=== PATIENT | female | born 1940 | race Caucasian/White ===

== ENCOUNTER 2019-06-28 11:39 | Inpatient (IN) ==
[2019-06-28] MEDS ORDERED: TYLENOL PO PRN (12:55)
[2019-06-28] MEDS ORDERED: LOVENOX 1 MG/KG SUBQ SCH (12:55)
[2019-06-28] MEDS ORDERED: ZOFRAN IV PRN (12:55)
--- NOTE | 2019-06-28 14:04 | HISTORY AND PHYSICAL ---
PRIMARY CARE PHYSICIAN: Dr. Briana Tabares. CHIEF COMPLAINT: Shortness of breath and cough over the past couple of weeks that progressively worsened. She was sent for an outpatient CT of the chest yesterday, and today was found to have a right upper lobe and right lower lobe pulmonary emboli, and a right middle lobe pneumonia. She is being admitted as a direct admit. HISTORY OF PRESENTING ILLNESS: This is a 78-year-old female who presents to [facility] as a direct admit from her primary care physician's office after she states she had had shortness of breath and a cough for the past couple of weeks that was a productive cough. She was sent for an outpatient after being seen by her primary care physician for a chest x-ray that showed an impression of pulmonary fibrosis. They also did a pulmonary arteriogram because she has had a history about a year ago of a right lung PE, and was on Eliquis for about 4 months and then was taken off. The CT angiogram of pulmonary artery showed a tiny nonocclusive pulmonary emboli in the right upper and lower lobe pulmonary arteries, small infiltrates in the right middle lobe suggesting a bronchopneumonia, and advanced COPD. She is being admitted for further evaluation and treatment. PAST MEDICAL HISTORY: Right PE, advanced COPD, and GERD. PAST SURGICAL HISTORY: Bilateral tubal ligation and right ankle surgery. FAMILY HISTORY: Father had an IA. Mother had cervical cancer. Twin sister had lymphoma. SOCIAL HISTORY: She currently lives with family. Denies any tobacco, alcohol or illicit drug use. ALLERGIES: To penicillin, shrimp, and sulfa. HOME MEDICATIONS: A current list will need to be obtained, reconciled, reviewed, and restarted as appropriate will place an order for nursing to update and confirm home medications. LABORATORY: No current lab studies. We will order a CBC, BMP, bilateral lower extremity venous Doppler. Again, she had a chest x-ray on 06/26/2019 that showed pulmonary fibrosis. She had a pulmonary arteriogram on 06/27/2019 that showed tiny nonocclusive pulmonary emboli in the right upper and lower lobe of the pulmonary arteries. Small infiltrates in the right middle lobe suggesting a bronchopneumonia and advanced COPD. We will also check an EKG. REVIEW OF SYSTEMS: She denied any fever, chills, blurred vision, dizziness, or chest pain. She has had a productive cough of thick sputum and shortness of breath. Denied any abdominal pain, constipation, diarrhea, burning or hurting with urination. PHYSICAL EXAMINATION: This is a 78-year-old female who is lying in the bed and answers questions appropriately. HEENT: Normocephalic, atraumatic. Normal ENT inspection. Oropharynx and nares are clear. EYES, ENT: Pupils are equal, round, and reactive to light and accommodation. Extraocular movements are intact. Oropharynx and nares are clear. NECK: Normal inspection. Normal range of motion. LUNGS: Clear on the left side, decreased on the right. Equal lung expansion. Chest wall movement noted. HEART: Regular rate and rhythm. No murmurs, rubs, or gallops. ABDOMEN: Soft, nontender, and nondistended. Bowel sounds are present x4 quadrants. MUSCULOSKELETAL: She has 5/5 strength x4 extremities. NEUROLOGICAL: The cranial nerves 2-12 appear grossly intact. ASSESSMENT: 1. Right upper and lower lobe PE. 2. Right middle lobe bronchopneumonia. 3. Chronic obstructive pulmonary disease. 4. Gastroesophageal reflux disease. PLAN: She will be admitted to the medical unit. Placed on telemetry. O2 per protocol. We will update and confirm home medications, and then restart as appropriate. Place on a regular diet. Bilateral lower extremity venous Doppler. Check a CBC and BMP now and in the morning. Place on Rocephin 1 gram IV q.24, azithromycin 500 IV q.24, Lovenox 1 mg/kg subcu q.12h, DuoNeb q.4 hours. We will do a hypercoagulable workup. Further orders after seen by attending. Dictated by VINCENT Cortes for Geraldo Meraz MD cc: VINCENT Cortes MD Lindsay E. Smith, MD I agree with most components of history, physical, assessment and plan. A separate addendum has been dictated. HU[facility] PSYCHIATRIC CENTERArlin
[2019-06-28] MEDS: LOVENOX SUBQ SCH (14:34)
[2019-06-28 14:36] LABS: BASO# 0.04 X1000 (0.0-0.2); BASO% 0.8 % (0.0-0.8); EOS# 0.22 X1000 (0.0-0.7); EOS% 4.2 % (0.0-10.0); HEMATOCRIT 41.8 % (37.0-47.0); HEMOGLOBIN 13.1 g/dL (12.0-16.0); LYMPH# 1.25 X1000 (1.2-3.4); LYMPH% 23.8 % (20.5-51.1); MCH 27.3 PG (27-31); MCHC 31.3 g/dL (33-37); MCV 87.3 FL (81-99); MONO# 0.57 X1000 (0.11-0.59); MONO% 10.8 % (1.7-9.3); MPV 10.7 FL (7.4-10.4); NEUT# 3.18 X1000 (1.4-6.5); NEUT% 60.4 % (42.2-75.2); PLT 275 X1000 (130-400); RBC 4.79 XMIL (4.2-5.4); RDW 14.2 % (11.5-14.5); WBC 5.26 X1000 (4.8-10.8)
--- NOTE | 2019-06-28 15:15 | EKG Report ---
Test Performed on : 06/28/2019 2:12:04 PM Test Reason : Right PE Blood Pressure : / mmHG Vent. Rate : 066 BPM Atrial Rate : 066 BPM P-R Int : 192 ms QRS Dur : 080 ms QT Int : 424 ms P-R-T Axes : 063 -17 022 degrees QTc Int : 444 ms Normal sinus rhythm. Anterolateral infarct (cited on or before 03-JAN-2018) Abnormal ECG When compared with ECG of 11-JUN-2019 01:11, (Unconfirmed) Questionable change in initial forces of Lateral leads Confirmed by Kannan Lousi MD ([id number]) on 06/28/2019 3:08:31 PM
[2019-06-28 15:26] LABS: CALCIUM 9.3 mg/dL (8.8-10.2); CREATININE 1.2 mg/dL (0.5-0.9); POTASSIUM 4.2 mmol/L (3.5-5.1)
[2019-06-28] MEDS: ROCEPHIN 1 GM in NS 50 ML IV SCH (15:37)
[2019-06-28] MEDS: DUONEB (A & A) INH SCH ×3 (16:13→22:48)
[2019-06-28] MEDS ORDERED: ASTELIN NASAL SPRAY NAS PRN (16:13)
[2019-06-28 16:22] LABS: URINE SOURCE CLEAN CATCH
[2019-06-28 16:33] LABS: BILIRUBIN URINE NEGATIVE (NEGATIVE); BLOOD URINE NEGATIVE (NEGATIVE); COLOR YELLOW; GLUCOSE URINE NEGATIVE (NEGATIVE); KETONE URINE NEGATIVE (NEGATIVE); LEUKOCYTES URINE NEGATIVE (NEGATIVE); NITRITE URINE NEGATIVE (NEGATIVE); PROTEIN URINE NEGATIVE (NEGATIVE); TURBIDITY URINE CLEAR (CLEAR); UR EPITHELIAL CELLS <10 /HPF (<10); URINE BACTERIA NEGATIVE /HPF; URINE RBC <10 /HPF (<10); URINE WBC <10 /HPF (<10); UROBILINOGEN URINE NORMAL (NORMAL)
[2019-06-28] MEDS: ZITHROMAX 500 MG/NS 500 MG/250 ML IVPB IV SCH (17:03)
--- NOTE | 2019-06-28 20:56 | HISTORY AND PHYSICAL ---
HISTORY OF PRESENT ILLNESS: Addendum to history and physical dictated by the nurse practitioner. I agree with most components of history, physical, assessment, and plan. In brief, Ms. 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 For which, she saw her outpatient provider where a CT scan of lung was ordered. CT scan of the lung, however, detected right upper and lower lobe pulmonary embolism, and she was advised to come to the emergency room. At the time of my evaluation, the patient is having a coughing spell, and after cough she is feeling short of breath. She denies any chest pain. She denies any recent travel. She denies recent surgery. She is fairly functional. She denies lower extremity injury. Daughter is at bedside. VITALS: Temperature of 97.8 degrees, pulse 85, respiratory rate 16, blood pressure is 120/60. She is saturating 95% on room air. PHYSICAL EXAMINATION: GENERAL: Does not appear in any acute distress. ORAL CAVITY: Moist. LUNGS: Air entry bilaterally equal. No wheeze, rhonchi, or crackles. CARDIOVASCULAR: S1, S2 normal. No murmur, rub, or gallop. She systolic murmur affecting right second intercostal space. ABDOMEN: Soft, nontender. EXTREMITIES: She has superficial venous dilation of bilateral lower extremities. No edema. LABORATORY DATA: Suggestive of no leukocytosis, normal hemoglobin, normal electrolytes, except creatinine of 1.2. MICROBIOLOGY: No data. IMAGING: Pulmonary arteriogram is detecting tiny nonocclusive pulmonary emboli in the right upper and lower lobe, small infiltrates in the right middle lobe suggesting bronchopneumonia and advanced COPD. ASSESSMENT: 1. Right upper and lower lobe pulmonary embolism. 2. Right middle lobe bronchopneumonia. 3. History of chronic obstructive pulmonary disease due to secondhand smoke. 4. Essential hypertension. PLAN: I will start patient on intravenous ceftriaxone and azithromycin. Follow up urine antigen and sputum culture. I will start her on enoxaparin and later on, transition her to Eliquis. I will follow up with CBC tomorrow. Plan of care discussed with her and daughter. Their questions have been satisfactorily answered. cc: Geraldo Meraz MD MTDArlin
[2019-06-29] MEDS: LOVENOX SUBQ SCH (02:59)
[2019-06-29] MEDS: DUONEB (A & A) INH SCH ×3 (03:38→10:55)
[2019-06-29] MEDS: PRILOSEC PO SCH (06:11)
[2019-06-29 07:28] LABS: BASO# 0.04 X1000 (0.0-0.2); BASO% 0.9 % (0.0-0.8); EOS# 0.22 X1000 (0.0-0.7); EOS% 4.7 % (0.0-10.0); HEMATOCRIT 38.2 % (37.0-47.0); HEMOGLOBIN 11.8 g/dL (12.0-16.0); LYMPH# 1.46 X1000 (1.2-3.4); LYMPH% 31.3 % (20.5-51.1); MCH 27.5 PG (27-31); MCHC 30.9 g/dL (33-37); MONO# 0.46 X1000 (0.11-0.59); MONO% 9.9 % (1.7-9.3); MPV 10.2 FL (7.4-10.4); NEUT# 2.49 X1000 (1.4-6.5); NEUT% 53.2 % (42.2-75.2); PLT 257 X1000 (130-400); RBC 4.29 XMIL (4.2-5.4); RDW 14.7 % (11.5-14.5); WBC 4.67 X1000 (4.8-10.8)
[2019-06-29 07:50] LABS: CALCIUM 8.2 mg/dL (8.8-10.2); CREATININE 1.1 mg/dL (0.5-0.9); POTASSIUM 4.6 mmol/L (3.5-5.1)
[2019-06-29] MEDS: PRINIVIL PO SCH (10:08)
[2019-06-29] MEDS: VITAMIN B-12 PO SCH (10:08)
[2019-06-29] MEDS: SINGULAIR PO SCH (10:09)
[2019-06-29] MEDS ORDERED: DUONEB (A & A) INH PRN (14:11)
[2019-06-29] MEDS: ROCEPHIN 1 GM in NS 50 ML IV SCH (14:35)
[2019-06-29] MEDS: BIDEX PO SCH ×3 (15:13→21:34)
--- NOTE | 2019-06-29 15:33 | PROGRESS NOTE ---
DATE: 06/29/2019 INTERVAL HISTORY: No acute events overnight. The patient has been coughing a lot and wanted some cough medication. They also requested Pulmonology evaluation, which I will go ahead and consult. I discussed with them about pending sputum culture. I discussed with them that it was okay for her to come out of bed and walk in the hallway. I discussed with her about changing her enoxaparin to Eliquis. I answered all of their questions. VITALS: Currently, temperature of 98 degrees, pulse 103, respiratory rate 20, blood pressure 108/56. She is saturating 96% on room air. PHYSICAL EXAMINATION: General: Does not appear in any acute distress. Oral cavity is moist. Air entry bilaterally equal. No wheeze or rhonchi. Inspiratory crackles on right infrascapular region. S1, S2 normal. No murmur, rub, or gallop. Abdomen: Soft, nontender. No lower extremity edema. She is alert and oriented x3. She is able to walk in the hallway without any difficulty. LABORATORY AND DIAGNOSTIC DATA: Her hemoglobin is 11.8, platelet is 257,000. Her electrolytes are normal, except creatinine of 1.1. She had a homocystine level drawn which was low. Her remaining hypercoagulability workup is in lab. Sputum culture has not shown any growth so far. No new imaging. ASSESSMENT AND PLAN: 1. Right upper and lower lobe pulmonary embolism. Change the patient's enoxaparin to 10 mg every 12 hours. 2. Right middle lobe bronchopneumonia. Follow up sputum cultures, urine Streptococcus, and Legionella antigen. Continue ceftriaxone and azithromycin. 3. History of chronic obstructive pulmonary disease due to secondhand smoke. Continue albuterol/ipratropium nebulization as needed and guaifenesin for cough. She is also listed to be taking montelukast and has azelastine nasal spray, which I will continue. 4. Essential hypertension. Currently, normotensive. Continue her lisinopril. DISPOSITION: I will monitor patient inside the hospital as I await sputum culture. She has not had a flu shot this season yet. However, her cough symptoms have been ongoing for two months now. Plan of care discussed with the patient and her daughter at bedside. Their questions have been answered. cc: Geraldo Meraz MD
[2019-06-29] MEDS: ZITHROMAX 500 MG/NS 500 MG/250 ML IVPB IV SCH (16:29)
[2019-06-29] MEDS: ELIQUIS PO SCH (18:41)
[2019-06-29] MEDS ORDERED: ELIQUIS PO SCH (21:00)
[2019-06-30] MEDS: ELIQUIS PO SCH (06:05)
[2019-06-30] MEDS: PRILOSEC PO SCH (06:05)
[2019-06-30 06:38] LABS: HEMATOCRIT 37.4 % (37.0-47.0); HEMOGLOBIN 11.7 g/dL (12.0-16.0); MCH 27.9 PG (27-31); MCHC 31.3 g/dL (33-37); MCV 89.3 FL (81-99); MPV 10.1 FL (7.4-10.4); RBC 4.19 XMIL (4.2-5.4); RDW 14.9 % (11.5-14.5); WBC 4.27 X1000 (4.8-10.8)
[2019-06-30 07:59] VITALS: BP 115/64
[2019-06-30] MEDS: BIDEX PO SCH (09:03)
[2019-06-30] MEDS: SINGULAIR PO SCH (09:03)
[2019-06-30] MEDS: PRINIVIL PO SCH (09:03)
[2019-06-30] MEDS: VITAMIN B-12 PO SCH (09:04)
--- NOTE | 2019-06-30 14:54 | DISCHARGE SUMMARY ---
ADMISSION DATE: 06/28/2019 DISCHARGE DATE: 06/30/2019 DISCHARGE DISPOSITION: Home. DISCHARGE CONDITION: Hemodynamically stable. She was able to walk in the hallway without shortness of breath. Her cough is improving. We discussed about completing antibiotic course for pneumonia, taking blood thinners and have a discussion with her regular physician about lifelong anticoagulation, outpatient pulmonology followup. I answered all of her questions. DISCHARGE DIAGNOSES: 1. Acute right upper and lower lobe pulmonary embolism. 2. Right middle lobe bronchopneumonia. 3. History of chronic obstructive pulmonary disease due to secondhand smoke. OTHER DIAGNOSES: 1. Essential hypertension. 2. Seasonal allergies. 3. Prior history of pulmonary embolism of right lower lobe in 2018. DISCHARGE MEDICATIONS: 1. Azelastine nasal spray 2 spray nasal b.i.d. as needed. 2. Lisinopril 5 mg daily. 3. Omeprazole 40 mg daily. 4. Vitamin B12 2500 mcg daily. A 5. Azithromycin 500 mg daily. 6. Guaifenesin 200 mg 4 times a day as needed for cough 20 tablets. 7. Cefuroxime 500 mg b.i.d. 6 tablets. 8. Apixaban 10 mg b.i.d. for 6 days and then 5 mg b.i.d. 9. Montelukast 10 mg daily 60 tablets. VITALS: At the time of discharge temperature 98.1 degrees, pulse 77 respiratory 20 blood pressure 115/64 saturating 96% on room air. PHYSICAL EXAMINATION: She does not appear in any acute distress oral cavity is moist. No wheeze, rhonchi, or crackles. Air entry bilaterally equal S1, S2 normal not tachycardic no murmur or gallop. Abdomen Soft, nontender. No lower extremity edema. She was alert oriented x3. SIGNIFICANT LABS: At discharge WBC 4.2, hemoglobin 11.7, platelet 235,000. Her electrolytes had BUN of 15, creatinine of 1.1, GFR of 48, likely suggestive of chronic kidney disease stage 3, which was present in 2018 as well. Homocystine level was not elevated. Urinalysis was unremarkable. Her hypercoagulability workup including antithrombin 3 activity, Factor 5 Leiden, urine Legionella and streptococcal antigen, protein C, protein S activity, phospholipid antibody and prothrombin gene mutations are in the lab. She was advised to have follow up with her regular doctor about the results. SIGNIFICANT IMAGING: During current hospitalization: She had outpatient pulmonary arteriogram done June 27, which had tiny nonocclusive pulmonary emboli in the right upper and lower lobe, small infiltrate on the right middle lobe suggestive of bronchopneumonia and advanced COPD. HOSPITAL COURSE SUMMARY: Ms. Mckeon is 78 years old lady with past medical history of COPD due to secondhand smoke, who initially was sent to the emergency room by her primary care provider who she had seen for complaints of cough and shortness of breath of about 2 months duration. Her primary care provider had ordered a CT scan/ pulmonary arteriogram, which had detected right upper and lower lobe pulmonary embolism and right middle lobe bronchopneumonia. She was advised to go to the emergency room. In the emergency room, the patient was found to be coughing a lot and was in mild distress because of cough. She was also subjectively feeling short of breath so she was advised to be in the hospital for further management. She was started on anticoagulation, initially on enoxaparin and later on apixaban and also on intravenous ceftriaxone and azithromycin and sputum culture were collected. 48 hours later sputum culture did not have any growth and she was already transitioned to Eliquis, which she was tolerated tolerating well so she was advised to be discharged to complete the course of antibiotics as well as blood thinners. TIME SPENT: More than 30 minutes spent discharging this patient. Plan of care was discussed with her. All of her questions were answered. She was advised to have a follow up with regular physician and insulator apprentice. cc: Geraldo Meraz MD
--- NOTE | 2019-07-01 20:27 | Extremity Venous Study ---
PROCEDURE NAME: Venous U/S Bilateral Legs - 06/28/2019 REFERRING PROVIDER: Mattie. READING PHYSICIAN: Dr. Ortez. FIELD AGRONOMIST: Vida. INDICATION: PE . FINDINGS: The deep veins of the lower extremities were imaged. They are compressible, patent without thrombus. The superficial veins of the right lower extremity were imaged. They are compressible, patent without thrombus. The left greater saphenous vein however has a nonocclusive thrombus throughout its length. There is also noted to be a cyst in the left popliteal fossa. It is small. INTERPRETATION: No DVT of either lower extremity. 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 The patient denies any previous vein treatment and there is a small left popliteal cyst. cc: MD Kathy Verdugo CRNP
== END 2019-06-30 14:22 | disposition home or self-care (01) | DRG 175 ==
LOC: SUATTDRO 11:39 → DIRADM 11:39 → EDIPHOLD 12:04 → 4N 15:29
PROVIDERS: ATTEND Internal Medicine